=== PATIENT | female | born 1985 | race Caucasian/White ===

== ENCOUNTER 2019-01-18 16:00 | Emergency (ER) | payer OTHER ==
[~2019-01-18] VITALS: Ht 172.7 cm; Wt 116.8 kg
[2019-01-18 16:00] VITALS: BP 146/85
--- NOTE | 2019-01-18 16:37 | RAD ---
Left foot, 3 views, 01/18/2019: HISTORY: Foot injury, lateral pain No fracture or dislocation is identified. There is a small inferior calcaneal spur. Subcutaneous edema is evident. IMPRESSION: No acute bony abnormality is detected. Electronically signed by: Som Camacho MD (01/18/2019 4:34 PM) [facility]
--- NOTE | 2019-01-18 16:56 | PHYS DOC ---
Past History Past Medical History: Hypertension Past Surgical History: Hysterectomy Alcohol Use: Occasionally Drug Use: None Adult General Chief Complaint Chief Complaint: FOOT INJURY PAIN [facility] HPI Patient is a 33-year-old female who presents with left foot pain after accidentally hitting it on a window ledge next to her bed as she was trying to fluff covers with her feet. She struck the top of her foot against the ledge. This happened at approximately 10:30 this morning. Minimal improvement with over -the-counter ibuprofen. She is able to ambulate. No previous foot injury. Pain has been getting worse over time. No weakness or numbness.[] Review of Systems Review of Systems Constitutional: Denies fever or chills [] Eyes: Denies change in visual acuity, redness, or eye pain [] HENT: Denies nasal congestion or sore throat [] Respiratory: Denies cough or shortness of breath [] Cardiovascular: No additional information not addressed in HPI [] GI: Denies abdominal pain, nausea, vomiting, bloody stools or diarrhea [] : Denies dysuria or hematuria [] Musculoskeletal: See history of present illness[] Integument: Denies rash or skin lesions [] Neurologic: Denies headache, focal weakness or sensory changes [] Endocrine: Denies polyuria or polydipsia [] All other systems were reviewed and found to be within normal limits, except as documented in this note. Allergies Allergies Allergies Coded Allergies Type Severity Reaction Last Updated Verified doxycycline Allergy Unknown 01/18/19 Yes Physical Exam Physical Exam Constitutional: Well developed, well nourished, no acute distress, non-toxic appearance. [] HENT: Normocephalic, atraumatic, bilateral external ears normal, oropharynx moist, no oral exudates, nose normal. [] Eyes: PERRLA, EOMI, conjunctiva normal, no discharge. [] Neck: Normal range of motion, no tenderness, supple, no stridor. [] Cardiovascular:Heart rate regular rhythm, no murmur [] Lungs & Thorax: Bilateral breath sounds clear to auscultation [] Abdomen: Not examined. [] Skin: Warm, dry, no erythema, no rash. [] Back: No tenderness, no CVA tenderness. [] Extremities: Edgar along the lateral aspect of the foot, right, distal neurovascularly intact, no cyanosis, no clubbing, ROM intact, no edema. [] Neurologic: Alert and oriented X 3, normal motor function, normal sensory function, no focal deficits noted. [] Psychologic: Affect normal, judgement normal, mood normal. [] EKG EKG [] Radiology/Procedures Radiology/Procedures []PROCEDURE: FOOT LEFT 3V Left foot, 3 views, 01/18/2019: HISTORY: Foot injury, lateral pain No fracture or dislocation is identified. There is a small inferior calcaneal spur. Subcutaneous edema is evident. IMPRESSION: No acute bony abnormality is detected. Course & Med Decision Making Course & Med Decision Making Pertinent Labs and Imaging studies reviewed. (See chart for details) Medical decision making: There is no evidence of a fracture or dislocation. No evidence of neurovascular compromise[] Dragon Disclaimer Dragon Disclaimer This electronic medical record was generated, in whole or in part, using a voice recognition dictation system. Departure Departure: Impression: Primary Impression: Contusion of left foot Disposition: HOME, SELF-CARE Condition: IMPROVED Referrals: [facility] (PCP) Patient Instructions: Foot Contusion Additional Instructions: Follow-up with your regular doctor in 2 days. If you do not have regular doctor list of local clinics will be provided for you. Return to the ER if worsening pain or any other concerns. Scripts Meloxicam (MELOXICAM) 7.5 Mg Tablet 7.5 MG PO DAILY for PAIN, #20 TAB Prov: ROBBIE RODRIGUEZ DO 01/18/19 Problem Qualifiers Primary Impression: Contusion of left foot Encounter type: initial encounter Qualified Codes: S90.32XA - Contusion of left foot, initial encounter ROBBIE RODRIGUEZ DO Jan 18, 2019 16:56
[2019-01-18] MEDS ORDERED: MELO7.5T29 PO (17:00)
== END 2019-01-18 17:10 | disposition home or self-care (01) ==
LOC: ER 16:00
DX: S90.32XA Contusion of left foot, initial encounter (principal); I10 Essential (primary) hypertension; Z88.1 Allergy status to other antibiotic agents; W22.8XXA Striking against or struck by other objects, initial encounter; Y93.89 Activity, other specified; Y92.89 Other specified places as the place of occurrence of the external cause; Y99.8 Other external cause status
CPT/HCPCS: 73630; 99284

== ENCOUNTER → 2019-03-15 | Outpatient (CLI) | payer OTHER ==
[~2019-03-15] MED LIST: MELO7.5T29 PO
--- NOTE | 2019-03-15 15:31 | RAD ---
DATE: 03/15/2019 EXAM: DIGITAL DIAGNOSTIC BILATERAL, BREAST LEFT HISTORY: Left breast lump COMPARISON: Baseline study This study was interpreted with the benefit of Computerized Aided Detection (CAD). Breast Density: SCATTERED The breast parenchyma shows scattered fibroglandular densities. Breast parenchyma level B. FINDINGS: A BB was placed over the area of reported palpable concern at approximately the 9:00 location in the left breast. The underlying breast tissues are predominantly fatty. No suspicious breast densities or microcalcifications are seen in either breast. Left breast ultrasound, 03/15/2019: A targeted ultrasound exam of the medial aspect of the left breast was performed from the 8:00 to 11:00 locations. No solid mass or unusual fluid collection is seen. IMPRESSION: 1. No mammographic evidence of malignancy in either breast. 2. The targeted ultrasound exam of the left breast reveal no abnormality. 3. Clinical follow-up is suggested. BI-RADS CATEGORY: 1 NEGATIVE RECOMMENDED FOLLOW-UP: CLIN FOLLOW UP IMAGING CLINICALLY INDICATED PQRS compliance statement: Patient information was entered into a reminder system with a target due date for the next mammogram. Mammography is a sensitive method for finding small breast cancers, but it does not detect them all and is not a substitute for careful clinical examination. A negative mammogram does not negate a clinically suspicious finding and should not result in delay in biopsying a clinically suspicious abnormality. "Our facility is accredited by the [employer] [place] [employer] Mammography [employer]."
== END | disposition home or self-care (01) ==
LOC: MAMMO 13:28
PROVIDERS: ATTEND Registered Nurse
DX: N63.0 Unspecified lump in unspecified breast (principal)
CPT/HCPCS: 76641; 77066